=== PATIENT | male | born 1980 | race Caucasian/White ===

== ENCOUNTER 2017-09-05 19:47 | Emergency (ER) | payer SELFPAY ==
[~2017-09-05] VITALS: Ht 182.9 cm; Wt 106.8 kg
[~2017-09-05 19:47] MED LIST: NOCURR
[2017-09-05] MEDS ORDERED: HYDROCODONE/ACETAMINOPHEN 5-325 MG TABLET PO ONE (20:30)
[2017-09-05] MEDS ORDERED: ACYCLOVIR 200 MG CAPSULE PO ONE (20:30)
[2017-09-05 21:05] VITALS: BP 132/88
== END 2017-09-05 21:06 | disposition home or self-care (01) ==
LOC: EMS 19:49
DX: G51.0 Bell's palsy (principal); I10 Essential (primary) hypertension; Z88.0 Allergy status to penicillin
CPT/HCPCS: 99283